=== PATIENT | male | born 1945 | race Caucasian/White ===

== ENCOUNTER 2017-02-21 11:57 | Inpatient (IN) | payer OTHER, MEDICARE ==
[~2017-02-21] VITALS: Ht 182.9 cm; Wt 74.4 kg
--- NOTE | ~2017-02-21 | HC ---
[facility] [place] [place] [address] CONSULTATION Name: DENICE GÓMEZ Room #: 442-[facility] [place] .R.#: [id number] Admission: 02/21/17 Attend Phys: Isidoro Law MD Discharge: 02/26/17 Date of : 43 Report #: [id number] THIS REPORT FOR: //name// CC: Jane Rowe HISTORY OF PRESENT ILLNESS: This patient is well known to me for diagnosis and treatment of stage 4 adenocarcinoma of the pancreas. He states that his left ankle started hurting him last week and was seen by his family physician who thought this was gout. I am uncertain as to whether lab was drawn or uric acid was elevated. Over the weekend, it continued to worsen to the point that he came to the Emergency Room early on Monday morning. He has a prior history of gout, some 50 years ago and has had no recent changes in medications. His cancer history dates to 04/2016, when I saw him in evaluation for iron deficiency anemia. 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 He has gone on to receive chemotherapy, which has resulted in decrease in his primary tumor metastases and a drop in a markedly elevated CA 19-9 titer. He initially received FOLFIRINOX and subsequently ONIVYDE with 5-FU and leucovorin on an every 2 week basis. He is due now actually for treatment, which has been delayed because of this hospitalization. PAST MEDICAL HISTORY: Significant also for prior shoulder dislocations along with a planned rotator cuff surgery, which was delayed because of this aforementioned cancer diagnosis. MEDICATIONS: As listed on the MFR. ALLERGIES: OMEPRAZOLE AND CIPROFLOXACIN. REVIEW OF SYSTEMS: Negative as noted. 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 FAMILY HISTORY: Positive for mother dying at 47 from metastatic lung cancer and was a smoker. His father at 84 from metastatic malignant melanoma. PHYSICAL EXAMINATION: GENERAL: Shows him to be alert and oriented. NECK: Supple. HEENT: He has poor dentition with missing teeth. He is wearing glasses. CARDIOVASCULAR: Normal S1 and S2. CHEST: Clear. [facility] [address] [place] [address] CONSULTATION Name: DENICE GÓMEZ Room #: 442-[facility] [place] [facility] M.R.#: [id number] Admission: 02/21/17 Attend Phys: Isidoro Law MD Discharge: 02/26/17 Date of : 43 Report #: [id number] ABDOMEN: Soft. BACK: Shows the scoliosis. He has decreased range of motion. NEUROLOGIC: No focal localizing signs. SKIN: Warm and dry. PSYCHIATRIC: Not agitated or confused. EXTREMITIES: Show left ankle is swollen and warm. HOSPITAL COURSE: His x-ray showed severe arthrosis with remodeling and resorption. There also appears to be a loose body and nonunion fracture at the base of the fifth metatarsal with soft tissue swelling. Uric acid is not elevated on ER lab. ASSESSMENT: Known metastatic adenocarcinoma of the pancreas. PLAN: I have discussed with him that his earlier PET scan showed no bony metastatic disease and I doubt that his left ankle is related. He is awaiting orthopedic consultation. Thanks for notifying me of his hospitalization and allowing me to participate in his care. <ELECTRONICALLY SIGNED> By: Jane Cotto MD 03/07/17 0916 1530 0026 Jane Cotto MD /nt
--- NOTE | ~2017-02-21 | EKG ---
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 : 1945 Requested By: Minnie Naik Order Number: [id number] MD: Spencer Griffiths Measurements Intervals [place] Rate: 97 P: 41 MD: 143 QRS: 24 QRSD: 106 T: -3 QT: 361 QTc: 459 Interpretive Statements Sinus rhythm RSR' in V1 or V2, right VCD Compared to ECG 03/18/2016 17:28:30 Ventricular premature complex(es) no longer present Electronically Signed On 02-21-2017 17:38:39 DIRECTOR PROCESS IMPROVEMENT by Spencer Griffiths [email or web address] <ELECTRONICALLY SIGNED> By: Spencer Griffiths MD, [facility] 02/21/17 1738 1227 1227 Spencer Griffiths MD, [facility] /EPI
--- NOTE | ~2017-02-21 | HC ---
[facility] [place] [address] CONSULTATION Name: DENICE GÓMEZ Room #: 442-[facility] M.R.#: [id number] Admission: 02/21/17 Attend Phys: Isidoro Law MD Discharge: Date of : 43 Report #: [id number] THIS REPORT FOR: //name// CC: Jane Rowe CHIEF COMPLAINT: Right ankle pain. HISTORY OF PRESENT ILLNESS: This slender 71-year-old gentleman presents with recent increase in chronic right ankle pain. He notes a variety of general medical problems including metastatic prostate cancer as well as significant chronic degenerative arthritis, particularly involving the right ankle. I believe this has been evaluated and treated in the past. He notes also an old history of gout, but this was many years ago. Recently, he has had increase in right ankle discomfort, which has been severe. He recalls no specific accident or injury. He is now having difficulty with weightbearing and ambulation on the right ankle and has pain even with light activity or light touch. At the time of my evaluation, he is resting comfortably in bed and talking on the phone, in no apparent distress. After he stopped his phone conference, however, he did then complain of right ankle discomfort and was uncomfortable with any attempted palpation or movement. The right foot and ankle revealed slight swelling, but no obvious deformity. He seemed to be somewhat hypersensitive and reactive to even light touch or limited movement of the ankle. There may be a very minor swelling of the joint, but certainly no major or large joint effusion. There is no redness or warmth. There is no sign of infection. There is, however, some joint crepitus and discomfort with movement consistent with degenerative change. In general, vascular status appears to be normal. X-rays of the right ankle reveal severe end-stage degenerative arthritis with marked changes of the distal tibia and talus consistent with severe degenerative arthritis and marked deformities of the joint with some associated spurring and fragmentation. There is no evidence of new fracture nor any significant surrounding soft tissue swelling. In summary, these findings are most consistent with severe end-stage degenerative arthritis. I cannot explain his recent marked aggravation in subjective symptoms and complaints. So this may be the result of gout, although the joint is not markedly inflamed at this time. We have also discussed the possibility of joint infection, although again there does not seem to be significant evidence of inflammation or redness or warmth. There is no sign of significant recent injury and no sign of fracture. [facility] [address] [place] [address] CONSULTATION Name: DENICE GÓEMZ Room #: 442-P [facility].#: [id number] Admission: 02/21/17 Attend Phys: Isidoro Law MD Discharge: Date of : 43 Report #: [id number] I think it is reasonable to try to aspirate the joint to look for gout or infection and I have discussed this with the patient. He notes he is quite anxious and apprehensive and fears he may need to have a good deal of sedation to tolerate a simple aspiration. I have explained that we can try some pain medication or minor oral sedation for simple joint aspiration, but I would not be inclined to go beyond that level. He seems to agree to this and I will try to go ahead with joint aspiration later today if possible. I think it would be reasonable simply to treat this symptomatically with IV or oral prednisone and pain medication as needed and then allow him to advance activity as comfort allows. I think ankle protection with a simple removal fracture boot would also be appropriate. <ELECTRONICALLY SIGNED> By: Andrés Juarez MD 02/23/17 0921 1558 2317 Andrés Juarez MD /nt
[~2017-02-21 11:57] MED LIST: ANTIVERT25 MG PO; APAP500; ASPIRIN EC81 M1 PO; ASPIRIN325 PO; HYDROCODON-ACE1 EACH PO; LISINOPRIL30 MG PO; MOBIC15 MG PO; MULTI-VITAMIN1 EAC5 PO; OXYCONTIN10 M1 PO; PROSCAR 5MG TABL5 M1 PO; SERTRALINE HCL100 MG PO; VITAMIN D2000 UNIT PO
[2017-02-21 12:46] LABS: ABSOLUTE NEUTROPHILS 10.5 thou/uL (1.4-8.2); BASOPHILS 1.5 % (0.0-2.0); EOSINOPHILS 0.6 % (0.0-3.0); HEMATOCRIT 26.8 % (42.0-52.0); HEMOGLOBIN 8.8 gm/dL (14.0-18.0); LYMPHOCYTES 4.2 % (24.0-44.0); MCH 28.7 pg (26.0-34.0); MCHC 32.9 g/dL (28.0-37.0); MCV 87.1 fL (80.0-100.0); MONOCYTES 6.5 % (1.0-8.0); PLATELET COUNT 265 thou/uL (150-400); POLYS 87.2 % (36.0-66.0); RBC 3.08 mil/uL (4.50-6.00); RDW 20.5 % (10.5-14.5)
[2017-02-21 12:59] LABS: CALCIUM 8.9 mg/dL (8.5-10.1); CREATININE 0.9 mg/dL (0.7-1.3); POTASSIUM 3.6 mmol/L (3.5-5.1)
[2017-02-21 13:03] LABS: ALBUMIN 2.1 g/dL (3.4-5.0); TOTAL BILIRUBIN 0.4 mg/dL (<0.1-1.0); TOTAL PROTEIN 6.5 g/dL (6.4-8.2)
[2017-02-21 13:54] LABS: URINE BILIRUBIN 1+ (Negative); URINE BLOOD 3+ (Negative); URINE CLARITY CLEAR; URINE COLOR YELLOW; URINE GLUCOSE-RANDOM* NEGATIVE (Negative); URINE KETONES TRACE (Negative); URINE LEUKOCYTES TRACE (Negative); URINE NITRITE NEGATIVE (Negative); URINE PROTEIN (DIPSTICK) 2+ (Negative); URINE SPECIFIC GRAVITY 1.025 (1.005-1.035); URINE UROBILINOGEN 0.2 E.U./dl (0.2-1.0)
[2017-02-21 14:09] LABS: ICTOTEST (BILI CONFIRMATORY) Positive (Negative)
[2017-02-21 14:18] LABS: CASTS None Seen /LPF (None Seen); SQUAMOUS 4-10 Moderate /LPF (0-3)
[2017-02-21 14:19] LABS: AMORPHOUS URATES Moderate /LPF (None Seen); BACTERIA 1-9 Few /HPF (None Seen)
[2017-02-21 19:44] VITALS: BP 127/73
[2017-02-21 20:01] VITALS: BP 132/71
[2017-02-21] MEDS ORDERED: INDOMETHACIN 5050 MG PO (21:49)
[2017-02-21] MEDS ORDERED: IRON325 PO (21:52)
[2017-02-21] MEDS ORDERED: OXYCONTIN20 M1 PO (21:55)
[2017-02-22 03:18] VITALS: BP 109/66
[2017-02-22 04:54] LABS: HEMATOCRIT 26.2 % (42.0-52.0); HEMOGLOBIN 8.5 gm/dL (14.0-18.0); MCH 28.2 pg (26.0-34.0); MCHC 32.3 g/dL (28.0-37.0); MCV 87.2 fL (80.0-100.0); RDW 20.3 % (10.5-14.5); WBC 15.7 thou/uL (4.0-11.0)
[2017-02-22 05:03] LABS: CALCIUM 9.1 mg/dL (8.5-10.1); CREATININE 0.9 mg/dL (0.7-1.3); POTASSIUM 4.2 mmol/L (3.5-5.1)
[2017-02-22 08:39] VITALS: BP 123/66
[2017-02-22 17:10] VITALS: BP 108/58
[2017-02-22 19:23] VITALS: BP 114/53
[2017-02-22 19:33] LABS: URINE BLOOD 3+ (Negative); URINE GLUCOSE-RANDOM* NEGATIVE (Negative); URINE KETONES TRACE (Negative); URINE LEUKOCYTES TRACE (Negative); URINE NITRITE POSITIVE (Negative); URINE PROTEIN (DIPSTICK) 2+ (Negative); URINE SPECIFIC GRAVITY 1.025 (1.005-1.035); URINE UROBILINOGEN 0.2 E.U./dl (0.2-1.0)
[2017-02-22 19:45] LABS: URINE BILIRUBIN NEGATIVE (Negative); URINE CLARITY CLOUDY; URINE COLOR BROWN
[2017-02-22 19:46] LABS: BACTERIA >30 Many /HPF (None Seen); CASTS None Seen /LPF (None Seen); SQUAMOUS None Seen /LPF (0-3); URINE RBC >20 Many /HPF (0-2); URINE WBC >25 Many /HPF (0-5)
[2017-02-22 19:47] LABS: AMORPHOUS URATES Moderate /LPF (None Seen)
[2017-02-23 03:36] VITALS: BP 118/70
[2017-02-23 06:17] LABS: HEMATOCRIT 23.5 % (42.0-52.0); HEMOGLOBIN 7.7 gm/dL (14.0-18.0); MCH 28.8 pg (26.0-34.0); MCHC 32.8 g/dL (28.0-37.0); MCV 87.9 fL (80.0-100.0); RBC 2.67 mil/uL (4.50-6.00); RDW 20.5 % (10.5-14.5); WBC 8.5 thou/uL (4.0-11.0)
[2017-02-23 06:26] LABS: CALCIUM 8.8 mg/dL (8.5-10.1); CREATININE 0.7 mg/dL (0.7-1.3)
[2017-02-23 08:53] VITALS: BP 127/87
[2017-02-23 16:11] VITALS: BP 107/67
[2017-02-23 19:13] VITALS: BP 126/69
[2017-02-24 03:40] VITALS: BP 140/93
[2017-02-24 08:00] VITALS: BP 130/68
[2017-02-24 16:00] VITALS: BP 134/71
[2017-02-24 17:43] VITALS: BP 134/71
[2017-02-24 17:46] VITALS: BP 134/71
[2017-02-24 19:35] VITALS: BP 127/62
[2017-02-25 03:01] VITALS: BP 130/62
[2017-02-25 06:25] LABS: HEMATOCRIT 21.6 % (42.0-52.0); MCH 28.3 pg (26.0-34.0); MCHC 32.2 g/dL (28.0-37.0); MCV 87.8 fL (80.0-100.0); RBC 2.46 mil/uL (4.50-6.00); RDW 20.8 % (10.5-14.5); WBC 11.3 thou/uL (4.0-11.0)
[2017-02-25 06:30] LABS: CALCIUM 7.9 mg/dL (8.5-10.1); CREATININE 0.7 mg/dL (0.7-1.3); POTASSIUM 3.9 mmol/L (3.5-5.1)
[2017-02-25 08:14] VITALS: BP 133/70
[2017-02-25 19:07] VITALS: BP 139/70
[2017-02-25 19:27] LABS: ABSOLUTE RETIC COUNT 0.0223 10^6/uL; OBSERVED RETIC COUNT 0.89 % (0.6-2.6)
[2017-02-25 19:38] LABS: DIRECT BILIRUBIN < 0.1 mg/dL (<0.1-0.3); TOTAL BILIRUBIN 0.1 mg/dL (<0.1-1.0)
[2017-02-26 05:29] VITALS: BP 113/62
[2017-02-26 09:10] VITALS: BP 133/59
[2017-02-26] MEDS ORDERED: OXYCONTIN10 M1 PO (10:46)
[2017-02-26] MEDS ORDERED: KEFLEX500 M1 PO (10:50)
[2017-02-26 15:48] VITALS: BP 113/81
== END 2017-02-26 15:30 | disposition home health service (06) | DRG 553 ==
LOC: ER 11:57 → EROBS 13:46 → 4S 13:46
PROVIDERS: Hospitalist; Internal Medicine Hematology & Oncology; Nurse Practitioner Family
DX: M25.071 Hemarthrosis, right ankle (principal); E43 Unspecified severe protein-calorie malnutrition; C25.9 Malignant neoplasm of pancreas, unspecified; I10 Essential (primary) hypertension; F41.9 Anxiety disorder, unspecified; Z96.612 Presence of left artificial shoulder joint; Z96.652 Presence of left artificial knee joint; M19.071 Primary osteoarthritis, right ankle and foot; D64.9 Anemia, unspecified; Z88.1 Allergy status to other antibiotic agents; Z88.8 Allergy status to other drugs, medicaments and biological substances; Z98.42 Cataract extraction status, left eye; Z90.49 Acquired absence of other specified parts of digestive tract; Z98.41 Cataract extraction status, right eye; Z80.1 Family history of malignant neoplasm of trachea, bronchus and lung; Z68.22 Body mass index [BMI] 22.0-22.9, adult; Z23 Encounter for immunization
CPT/HCPCS: 10195

== ENCOUNTER 2017-03-14 16:12 | Emergency (ER) | payer OTHER, MEDICARE ==
[~2017-03-14] VITALS: Ht 182.9 cm; Wt 74.8 kg
--- NOTE | ~2017-03-14 | EKG ---
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 03/15/17 0903 1718 17 Spencer Griffiths MD, FACC /EPI
--- NOTE | ~2017-03-14 | HC ---
[facility] [place] [address] CONSULTATION Name: DENICE GÓMEZ Room #: DEP Jones#: [id number] Admission: 03/14/17 Attend Phys: Discharge: 03/14/17 Date of : 43 Report #: [id number] THIS REPORT FOR: //name// CC: Garfield Booker REASON FOR CONSULTATION: Hyperkalemia and acute kidney injury. HISTORY OF PRESENT ILLNESS: I am not really sure about the accuracy of the information obtained from the patient as he seems to have mental status issues. I evaluated the patient last night, 03/14/2017, in the Emergency Room. He is a 71-year-old who was recently discharged from the hospital after being diagnosed with metastatic pancreatic cancer. He is known to have hypertension and anemia along with history of opiate abuse. He is going through chemotherapy. He called 911 due to repeated episodes of falling. Again, the details of the history were not fully clear given the patient's mental status. EMS reported that on arrival, the patient was covered in feces and urine. On presentation to the emergency room, he was found to have hyperkalemia with a pH of 7.7 and a creatinine of 12.3. PAST MEDICAL HISTORY: 1. Pancreatic cancer. 2. Cataract surgery. 3. Tonsillectomy. 4. Hypertension. 5. Anxiety. 6. Carpal tunnel. 7. Left shoulder replacement. 8. Back surgeries. MEDICATIONS: 1. Sertraline. 2. Meloxicam. 3. Vitamin D3. ALLERGIES: CIPRO AND OMEPRAZOLE. REVIEW OF SYSTEMS: Limited due to the patient's mental status. FAMILY HISTORY: Unobtainable due to the patient's mental status. PHYSICAL EXAMINATION: VITAL SIGNS: Blood pressure was marginal at 100/70, pulse rate was 86. HEAD AND NECK: No jugular venous distention. Dry mucous membranes. CHEST: Decreased air entry bilaterally. CARDIOVASCULAR: Regular, with no rub. [facility] [address] [place] [address] CONSULTATION Name: DENICE GÓMEZ Room #: DEP [facility].#: [id number] Admission: 03/14/17 Attend Phys: Discharge: 03/14/17 Date of : 43 Report #: [id number] ABDOMEN: Soft, nontender. LOWER EXTREMITIES: No edema. LABORATORY DATA: Laboratory values reviewed. White blood cell count 13.3, hemoglobin 7.7. Potassium 6.9, down from 7.7; BUN 112, down from 120 and creatinine 11.6, down from 12.3. Head CT revealed a new infarct. Chest x-ray, no acute changes. Shoulder x-ray, anterior and inferior dislocations. ASSESSMENT, IMPRESSION AND PLAN: 1. Acute kidney injury. 2. Hyperkalemia. 3. Metabolic acidosis. 4. Status post repeated falls. 5. Shoulder dislocations. 6. Recent pancreatic cancer. 7. Recent infarct. The patient has received on appropriate treatment for his hyperkalemia and his potassium seems to be trending down. It was relayed to me that the patient will be transferred to another facility to evaluate his mental status with an MRI and a neurological consultation. If the patient stays in the facility, I will initiate the appropriate medical management for his hyperkalemia. He seems to be making appropriate amount of urine. If he stays in the facility, I will also initiate the appropriate laboratory investigations. However, this all seems to be prerenal due to poor p.o. intake while taking nonsteroidal anti-inflammatory medications. I will communicate with the ER staff to decide whether I will continue following the patient if he is admitted to our facility; otherwise the patient will be transferred to a tertiary care center. <ELECTRONICALLY SIGNED> By: Nic Thompson MD 03/19/17 1810 0643 0945 Nic Thompson MD /nt
[~2017-03-14 16:12] MED LIST changes: +INDOMETHACIN 5050 MG PO; +IRON325 PO; +KEFLEX500 M1 PO; +OXYCONTIN20 M1 PO
[2017-03-14 16:14] VITALS: BP 160/81
[2017-03-14 16:34] LABS: HEMATOCRIT 24.6 % (42.0-52.0); HEMOGLOBIN 7.7 gm/dL (14.0-18.0); MCHC 31.2 g/dL (28.0-37.0); MCV 86.5 fL (80.0-100.0); PLATELET COUNT 458 thou/uL (150-400); RBC 2.85 mil/uL (4.50-6.00); RDW 22.6 % (10.5-14.5); WBC 13.3 thou/uL (4.0-11.0)
[2017-03-14 16:42] LABS: CREATININE 12.3 mg/dL (0.7-1.3)
[2017-03-14 16:44] LABS: POTASSIUM 7.7 mmol/L (3.5-5.1)
[2017-03-14 17:10] LABS: ABSOLUTE NEUTROPHILS 11.8 thou/uL (1.4-8.2)
[2017-03-14 17:11] LABS: ANISOCYTOSIS 3+; HYPOCHROMASIA 2+; MICROCYTES 1+; POLYCHROMASIA SLIGHT; SCHISTOCYTES 3+
[2017-03-14 18:21] LABS: CALCIUM 8.8 mg/dL (8.5-10.1); CREATININE 11.6 mg/dL (0.7-1.3)
[2017-03-14 18:30] LABS: POTASSIUM 6.9 mmol/L (3.5-5.1)
[2017-03-14 21:25] VITALS: BP 100/70
== END 2017-03-14 21:26 | disposition short-term general hospital (02) ==
LOC: ER 16:12 → EROBS 17:42 → ER 21:26
PROVIDERS: Nurse Practitioner; Physician Assistant
DX: M62.82 Rhabdomyolysis (principal); N17.9 Acute kidney failure, unspecified; E87.5 Hyperkalemia; I10 Essential (primary) hypertension; Z85.07 Personal history of malignant neoplasm of pancreas; Z88.1 Allergy status to other antibiotic agents; Z88.8 Allergy status to other drugs, medicaments and biological substances